=== PATIENT | female | born 1990 | race African-American/Black ===

== ENCOUNTER 2017-07-01 16:36 | Emergency (ER) | payer BC ==
[2017-07-01 17:14] LABS: ADD MAN DIFF? NO
[2017-07-01 17:17] LABS: BASO # 0.1 x10^3/uL (0.0-0.2); BASO % 1 % (0-3); EOS # 0.2 x10^3/uL (0.0-0.7); EOS % 2 % (0-3); HEMATOCRIT 35.8 % (36.0-47.0); LYMPH % 36 % (24-48); MEAN CORPUSCULAR HEMOGLOBIN 22 pg (25-35); MEAN CORPUSCULAR HGB CONC 31 g/dL (31-37); MEAN CORPUSCULAR VOLUME 71 fL (79-100); MONO # 0.5 x10^3/uL (0.0-1.1); MONO % 6 % (0-9); NEUT # 4.7 x10^3uL (1.8-7.7); NEUT % 55 % (31-73); PLATELET COUNT 309 x10^3/uL (140-400); RED BLOOD COUNT 5.07 x10^6/uL (3.50-5.40); RED CELL DISTRIBUTION WIDTH 17.9 % (11.5-14.5); WHITE BLOOD COUNT 8.5 x10^3/uL (4.0-11.0)
[2017-07-01 17:24] LABS: URINE HCG POC HCG NEGATIVE (Negative)
[2017-07-01 17:27] LABS: BILIRUBIN,URINE NEGATIVE (NEG); CLARITY,URINE CLEAR; COLOR,URINE YELLOW; GLUCOSE,URINE NEGATIVE (NEG); NITRITE,URINE NEGATIVE (NEG); PROTEIN,URINE NEGATIVE (NEG-TRACE); UROBILINOGEN,URINE 0.2 mg/dL (0.2 mg/dL)
[2017-07-01] MEDS ORDERED: CONTRAST GIVEN MC (17:30)
[2017-07-01 17:35] LABS: ANION GAP 11 (6-14); BLOOD UREA NITROGEN 10 mg/dL (7-20); BUN/CREATININE RATIO 14 (6-20); CALCIUM 8.4 mg/dL (8.5-10.1); CARBON DIOXIDE 27 mmol/L (21-32); CHLORIDE 104 mmol/L (98-107); CREATININE 0.7 mg/dL (0.6-1.0); GFR 122.4; GLUCOSE 103 mg/dL (70-99); POTASSIUM 3.6 mmol/L (3.5-5.1); SODIUM 142 mmol/L (136-145)
[2017-07-01 17:43] LABS: BACTERIA,URINE FEW /HPF (0-FEW); RBC,URINE 0 /HPF (0-2); SQUAMOUS EPITHELIAL CELL,UR MOD /LPF; WBC,URINE OCC /HPF (0-4)
[2017-07-01 17:44] LABS: ALBUMIN 3.4 g/dL (3.4-5.0); ALBUMIN/GLOBULIN RATIO 0.8 (1.0-1.7); TOTAL BILIRUBIN 0.2 mg/dL (0.2-1.0); TOTAL PROTEIN 7.7 g/dL (6.4-8.2)
[2017-07-01] MEDS: IOHEXOL 300 MG/ML 100ML VIAL. IV (17:44)
[2017-07-01 17:45] LABS: ALK PHOS 66 U/L (46-116); ALT (SGPT) 21 U/L (14-59); AST (SGOT) 12 U/L (15-37); LIPASE 68 U/L (73-393)
[2017-07-01 17:50] LABS: PLT ESTIMATE ADEQUATE (ADEQUATE)
[2017-07-01 17:51] LABS: ANISOCYTOSIS SLIGHT; HYPOCHROMIA MOD; MICROCYTOSIS MOD; POIKILOCYTOSIS SLIGHT
[2017-07-01 17:54] LABS: OVALOCYTES PRESENT
[2017-07-01] MEDS: MORPHINE SULFATE 2 MG/ML DISP.SYRIN. IV (18:30)
[2017-07-01] MEDS: FAMOTIDINE 20 MG/2 ML VIAL IVP (18:43)
== END 2017-07-01 18:53 | disposition home or self-care (01) ==
LOC: ER 16:36
DX: R10.30 Lower abdominal pain, unspecified (principal); R11.0 Nausea; E11.9 Type 2 diabetes mellitus without complications
CPT/HCPCS: 36415; 74177; 80053; 81001; 81025; 83690; 85025; 96374; 99285-25; Q9967; S0028